=== PATIENT | male | born 1960 | race Caucasian/White ===

== ENCOUNTER 2018-07-29 14:33 | Emergency (ER) | payer MEDICAID ==
[~2018-07-29] VITALS: Ht 172.7 cm; Wt 70.3 kg
[2018-07-29 14:47] VITALS: BP_SYST 129
[2018-07-29] MEDS ORDERED: DIPH-TET-PERTUS Vaccine 0.5 ML VIAL (ADACEL) IM ONE (17:00)
[2018-07-29] MEDS ORDERED: BACITRACIN 1 GM OINT TP ONE (17:00)
[2018-07-29] MEDS ORDERED: LIDOCAINE 1% 10 MG/ML, 20 ML MDV IJ ONE (17:00)
[2018-07-29 17:35] VITALS: BP_SYST 124
== END 2018-07-29 17:35 | disposition home or self-care (01) ==
LOC: SED 14:33
DX: S61.431A Puncture wound without foreign body of right hand, initial encounter (principal); W29.8XXA Contact with other powered hand tools and household machinery, initial encounter; Y93.89 Activity, other specified; Y92.89 Other specified places as the place of occurrence of the external cause; Y99.8 Other external cause status
CPT/HCPCS: 90715; 99283

== ENCOUNTER 2023-06-01 08:03 | Day surgery (SDC) | payer MEDICAID ==
[~2023-06-01] VITALS: Ht 172.7 cm; Wt 68.6 kg
[2023-06-01] MEDS ORDERED: MEPERIDINE 100 MG INJ. 100 MG/ML VIAL ONE (09:00)
[2023-06-01] MEDS ORDERED: MIDAZOLAM HCL 5 MG/5 ML VIAL ONE (09:01)
[2023-06-01 13:21] VITALS: O2SAT 100
[2023-06-01 13:39] VITALS: BP_SYST 107; PULSE 61; RESP 16
== END 2023-06-01 10:11 | disposition home or self-care (01) ==
LOC: SDS 08:03 → SMU 08:05 → SDS 10:11
PROVIDERS: ATTEND Internal Medicine Gastroenterology
DX: R13.10 Dysphagia, unspecified (principal); K21.00 Gastro-esophageal reflux disease with esophagitis, without bleeding; K29.50 Unspecified chronic gastritis without bleeding; R13.19 Other dysphagia; Z79.899 Other long term (current) drug therapy
CPT/HCPCS: 43239; 87081; 36415; 88305; 88312; 88313; G0378; J2250; J2175